=== PATIENT | female | born 1955 ===

== ENCOUNTER 2018-05-15 05:53 | Day surgery (SDC) | payer OTHER ==
[2018-05-13 17:02] VITALS: BMI 25.7
[2018-05-15] MEDS ORDERED: Lactated Ringer's 1,000 ML IV ONE ×3 (07:00→16:08)
--- NOTE | 2018-05-15 07:22 | CP.SDSHP ---
Same Day Surgery H & P - History Proposed Procedure: Right elbow radial head replacement Pre-Op Diagnosis: Right elbow radial head fracture - Previous Medical/Surgical History Misc: Other (HLD, hypothyroidism) Previous Surgical History: tubal ligation - Allergies Allergies: Allergies No Known Allergies Allergy (Verified 05/15/18 06:33) - Current Medications Current Medications: simvastatin, levothyroxine - Physical Exam General Appearance: NAD Vital Signs: Vital Signs 05/15/18 05/15/18 06:38 06:47 Temperature 97.7 F Pulse Rate 67 67 Respiratory 18 Rate Blood Pressure 137/77 O2 Sat by Pulse 99 Oximetry Mental Status: Alert & Oriented x3 Neuro: WNL Heart: WNL Lungs: WNL GI: WNL - {Optional Preform as Required} Abdomen: WNL Integument: WNL Ortho: Other (RUE: long arm splint intact, motor and sensation intact MN/UN/RN, 2 sec cap refill all fingers) - Impression Impression: Patient is a 62 y/o female with a traumatic R elbow injury following a fall on 05/08/18. She presents for R elbow radial head replacement. RIsks/benefits/alternatives were explained to patient who understands and agrees to proceed with above procedure. [facility] interpertation #[id number] was used. Pt. Evaluated Today:Candidate for Anesthesia & Procedure: Yes - Date & Time Date: 05/15/18 Time: 07:20 Short Stay Discharge - Short Stay Discharge Admitting Diagnosis/Reason for Visit: S52.121A/M25.521 Disposition: HOME/ ROUTINE
[2018-05-15] MEDS ORDERED: Bacitracin Ointment 30 GM TUBE ONE (12:25)
[2018-05-15] MEDS ORDERED: Ropivacaine 0.5% 30ML IV ONE (12:59)
[2018-05-15] MEDS ORDERED: Rocuronium 10 mg/ml (5 ml) ONE (13:01)
[2018-05-15] MEDS ORDERED: Propofol 10 mg/ml Inj (20 ML) ONE (13:01)
[2018-05-15] MEDS ORDERED: Midazolam 2 MG/2 ML VIAL ONE (13:01)
[2018-05-15] MEDS ORDERED: Succinylcholine 200 mg/10 ml Inj IV ONE (13:02)
[2018-05-15] MEDS ORDERED: Phenylephrine 10 mg/ml Inj ONE (13:03)
[2018-05-15] MEDS ORDERED: Lidocaine 4% (Laryng-O-Jet) Kit MM ONE (13:13)
[2018-05-15] MEDS ORDERED: Dexamethasone 4 mg/1 ml ONE (14:27)
[2018-05-15] MEDS ORDERED: Neostigmine 1:1000 (1 mg/ml) Inj ONE (15:09)
[2018-05-15] MEDS ORDERED: Bacitracin OINT 15GM TOP ONE (15:40)
[2018-05-15] MEDS ORDERED: Oxycodone/Acetaminophen 5/325 mg Tab PO PRN ×2 (15:50)
[2018-05-15] MEDS ORDERED: Dexamethasone 4 mg/1 ml IVP PRN (16:26)
--- NOTE | 2018-05-15 16:30 | PCM.ANESB4 ---
Infraclavicular Block - Femoral Nerve Block Date of Procedure: 05/15/18 Anesthesiologist: Jonathan Weeks Pre-Procedure Diagnosis: R radial head fracture Post-Procedure Diagnosis: same Procedure Performed: Brachial Plexus at the Infraclavicular area Right - Procedure Infraclavicular Block: The procedure was explained to the patient that it is for the post-operative pain management. Consent was obtained after a thorough discussion with the patient regarding the benefits and possible complications of local anesthetic block of the brachial plexus at the supraclavicular area. The patient was brought to the operating room and standard monitors were applied. Time-out was held with the circulating nurse to confirm the correct surgery and the appropriate block. After completion of the surgery under general anesthesia, patient's head was gently rotated away from the operative __RIGHT___ shoulder and the area medial to the coracoid process and inferior to the clavicle was carefully palpated. The ultrasound transducer was then applied to the skin in the transverse plane and the brachial plexus was visualized surrounding the axillary artery and deep to the pectoralis major and minor muscles. After thorough identification, this area was prepped with Chloraprep solution three times. At this point, a #21 gauge Stimuplex 4-inch needle was inserted cephalad to the ultrasound transducer and inferior to the clavicle in-plane towards the posterior aspect of the axillary artery. Needle advancement was performed carefully under ultrasound visualization. After repeated negative aspiration, ___5__cc of _0.5____% ____ropivacaine was injected and this was followed with __25____ cc of __0.5 % ___ropivacaine___. Under ultrasound guidance the local anesthetics were observed surrounding the cords of the brachial plexus. The needle was removed intact and sterile dressing was applied. The beth ent had stable vital signs and was subsequently extubated in no apparent distress. The patient tolerated the supraclavicular block of the brachial plexus well with stable vital signs was recovered in the post anesthesia recovery unit.
[2018-05-15] MEDS ORDERED: HYDROmorphone 0.5 mg/0.5 ml ISec ONE (16:32)
[2018-05-15] MEDS: HYDROmorphone 0.5 mg/0.5 ml ISec IVP PRN ×4 (16:35→17:30)
[2018-05-15 21:38] VITALS: BP 136/75; PULSE 73; RESP 20; TEMP 97.7; O2SAT 93
--- NOTE | 2018-05-17 10:22 | PCM.SURG1 ---
Surgeon's Initial Post Op Note - Surgeon's Notes Surgeon: [employer] Clerk: MARY Yañez/ Vignesh Vizcaino pa-c Type of Anesthesia: General Endo Anesthesia Administered By: DR Jonathan Weeks Pre-Operative Diagnosis: Displaced comminuted radial head fracture. fracture subluxation/fracture dislocation R elbow Operative Findings: displaced/ comminuted radial headf fracture R elbow. elbow instability s/p elbow subluxation/dislocation Post-Operative Diagnosis: as above Operation Performed: Radial head replacement R elbow. repair radial collateral ligam,ent. evaluation maniupulation r elbow under anaesthesia. applx posterior splint. positiong of fluoro/interpetation of video images Specimen/Specimens Removed: radial head Estimated Blood Loss: EBL {In ML}: 15 Blood Products Given: N/A Drains Used: No Drains Post-Op Condition: Fair Date of Surgery/Procedure: 05/17/18 Time of Surgery/Procedure: 14:25 (time in romm 1326)
--- NOTE | 2018-05-17 12:47 | OP ---
PROCEDURE DATE: 05/15/2018 LOCATION: [facility]. PREOPERATIVE DIAGNOSES: 1. Status post fracture subluxation of the right elbow. 2. Displaced comminuted radial head fracture. OPERATIVE FINDINGS: 1. Displaced and comminuted radial head fracture, right elbow. 2. Instability, status post right elbow trauma and right elbow subluxation/dislocation. POSTOPERATIVE DIAGNOSES: 1. Status post fracture subluxation of the right elbow. 2. Displaced comminuted radial head fracture. OPERATIONS PERFORMED: 1. Radial head replacement, right elbow. 2. Repair of radial collateral ligament. 3. Right elbow arthrotomy. 4. Manipulation and evaluation of the elbow under anesthesia. 5. Application of posterior splint. 6. Positioning for interpretation of video images. SURGEON: Ryan Wakefield MD MACHINE BOOKKEEPER: KYLIE Anderson, certified registered nursing grants and contracts assistant. SECOND PLAN CONSULTANT: Vignesh Braden PA-C ESTIMATED BLOOD LOSS: 15 mL. BLOOD PRODUCTS GIVEN: None. DRAINS: No drains. POSTOPERATIVE CONDITION: Stable. TIME OF SURGERY: 14:25 INCISION TIME IN THE ROOM: 13:26 OPERATIVE INDICATION: Lety Mcgovern is a 62-year-old woman, who was admitted through the emergency room at [facility]. The patient presented with a trauma to the elbow with a fracture subluxation/fracture dislocation with a comminuted displaced radial head fracture. The patient is seen in my office. Pros, cons, risks and benefits of open reduction and radial head replacement were discussed. Possibility of mechanical failure, infection, thromboembolic disease, possibility of secondary or tertiary surgery was discussed. The patient understands the pros, cons, risks and benefits. The informed consent was obtained in the office through a culturally competent nsh teacher, Larissa, in attendance as well as in the Operating Room with the culturally competent nsh teacher, as well as at the Same Day Surgery with the culturally competent nsh teacher by the video translation apparatus. After having obtained informed consent in the above fashion; after thoroughly discussing the pros, cons, risks and benefits of surgical approach; the concept of radial head replacement and ligament repair; the possibility of mechanical failure; infection; thromboembolic disease; recurrent instability was discussed. OPERATIVE PROCEDURE: After having obtained informed consent, after having identified side, site and procedure and a critical pause/time-out, after the satisfactory induction of the anesthetic, with the patient identified as Lety Mcgovern and having been placed in the supine position and all bony prominences well padded, the right upper extremity was prepped and free draped in the usual fashion for upper extremity surgery. The tourniquet had been applied, but was not yet inflated. After exsanguinating the limb using 4-inch Esmarch bandage, the tourniquet, which had been applied was inflated to 250 mmHg. This having been accomplished under the surgeon's direction, the fluoroscope was positioned. Video images were generated. Therapeutic decisions were made therefrom. An incision was described on the lateral aspect of the distal humerus superficial to the radial head. The skin incision was carried down through the skin and subcutaneous tissue. The patient was found to have injury to the lateral collateral ligament. Dissection was carried out from the lateral ridge of the humerus using #15 blade, taking great care to avoid injury to the radial nerve. This having been accomplished, the ligament was identified. Arthrotomy at this point in time was accomplished. Great care was taken to keep the forearm in pronation to avoid injury to the posterior interosseous branch of the radial nerve. The radial head was found to be fragmented, severely comminuted and displaced. Taking great care with minimal dissection to expose the fracture site, the radial head was removed as well as the fragments. This was irrigated. At this point in time with the Coreas retractors being employed, the osteotomy site was identified and using the oscillating saw, the radial head osteotomy was accomplished. This having been accomplished, the joint was thoroughly irrigated and it was found that the elbow was somewhat unstable. This having been accomplished, with the arm in pronation and delivering the proximal radius into the wound, reaming was accomplished to the appropriate sized radial head. The radial head circumference was measured and please refer to the video photographs and the package inserts for the sizing. Trialing having been accomplished, the elbow was reduced and found to be stable on pronation, supination, flexion/extension. At this point in time, the radial head replacement was introduced press fit. The fit was found to be excellent. The elbow was replaced. At this point in time, using interrupted FiberWire suture, repair of the lateral collateral ligament was accomplished primarily. The elbow was manipulated under anesthesia and fluoroscopy and found to be stable. At this point in time, the wound was thoroughly irrigated. Arthrotomy having been accomplished and repair of the radial collateral ligament having been accomplished and successful replacement of the radial head having been accomplished, the wound was thoroughly irrigated. Closure was in layers. The capsule was closed with interrupted FiberWire followed by Vicryl, 0 Vicryl, 2-0 Vicryl and stayc for skin. The Shawn Treadwell compression dressing and posterior splint was applied. The elbow was reduced at the time of the splinting. Posterior splint was applied and verification of position was offered on image intensification views. The patient was transferred from the operating table to a stretcher, having tolerated the procedure well. It was critical that the grants and contracts assistant and the second assistant terminal manager were present for this procedure to afford exposure at each step of the procedure. Ryan Wakefield MD
--- NOTE | 2018-05-19 09:38 | RAD ---
Date of service: 05/15/2018 PROCEDURE: Fluoroscopy up to 1 hr. HISTORY: Open reduction internal fixation radial head fracture. COMPARISON: None TECHNIQUE: Standard protocol for this study/examination. FINDINGS: Total fluoroscopic time (continuous mode) utilized during the procedure 17.0 seconds. Total exam DLP: 0.39 (mGy). IMPRESSION: Submitted images from the current procedure: 9.0.
== END 2018-05-15 22:20 | disposition home or self-care (01) ==
LOC: H.OPSURG 05:53 → H.MEDSURG1 20:48 → H.OPSURG 22:20
PROVIDERS: ATTEND Orthopaedic Surgery
DX: S52.121A Displaced fracture of head of right radius, initial encounter for closed fracture (principal); M25.521 Pain in right elbow; E78.5 Hyperlipidemia, unspecified; E03.9 Hypothyroidism, unspecified; X58.XXXA Exposure to other specified factors, initial encounter
CPT/HCPCS: 24000; 24300; 24363; 88304; J0330; J0690; J1100; J1170; J2001; J2250; J2270; J2370; J2405; J2704; J2710; J3010; J7120